=== PATIENT | male | born 2000 | race Two or more races ===

== ENCOUNTER 2019-04-25 20:57 | Emergency (ER) | payer BC, MEDICAID ==
[~2019-04-25] VITALS: Ht 172.7 cm; Wt 77.1 kg
[2019-04-25 22:21] LABS: Urine WBC None Seen /hpf (0 - 3)
[2019-04-25 22:36] LABS: Urine Bacteria NONE SEEN /hpf (None Seen); Urine Blood Negative /uL (Negative); Urine Mucus FEW (None Seen); Urine Specific Gravity 1.032 (1.001-1.035)
[2019-04-25 22:43] LABS: Alcohol, Urine < 3.0 mg/dL (0-5); Amphetamine Screen, Urine NEGATIVE (NEGATIVE); Barbiturate Scree,Urine NEGATIVE (NEGATIVE); Benzodiazephine Screen, Urine NEGATIVE (NEGATIVE); Cannabinoid Screen, Urine NEGATIVE (NEGATIVE); Cocaine Screen, Urine NEGATIVE (NEGATIVE); Opiate Scree,Urine NEGATIVE (NEGATIVE); Phencyclidine Screen, Urine NEGATIVE (NEGATIVE)
[2019-04-26 02:12] VITALS: BP 123/69
== END 2019-04-26 02:22 | disposition home or self-care (01) ==
LOC: ER 21:01
DX: K59.00 Constipation, unspecified (principal); J06.9 Acute upper respiratory infection, unspecified
CPT/HCPCS: 74176; 80307; 81001